=== PATIENT | female | born 1985 | race Caucasian/White ===

== ENCOUNTER → 2019-06-19 | Outpatient (REF) | payer OTHER | LOC: M SFHCLERA 11:06 | PROVIDERS: ATTEND Nurse Practitioner Family | DX: Z53.9 Procedure and treatment not carried out, unspecified reason (principal) ==

== ENCOUNTER 2019-09-20 11:22 | Inpatient (IN) | payer MEDICAID, OTHER ==
[~2019-09-20] VITALS: Ht 157.5 cm; Wt 90.7 kg
[2019-09-20] MEDS ORDERED: PHEN-239 PO (11:38)
[2019-09-20] MEDS ORDERED: SERT-141 PO (11:38)
[2019-09-20 12:03] LABS: HEMATOCRIT 41.3 % (36.0-47.0); HEMOGLOBIN 13.1 g/dl (12.0-15.5); MEAN CORPUSCULAR HEMOGLOBIN 26.3 pg (27.0-33.0); MEAN CORPUSCULAR HGB CONC 31.7 g/dl (32.0-36.5); MEAN CORPUSCULAR VOLUME 82.9 fl (80.0-96.0); PLATELET COUNT, AUTOMATED 414 10^3/uL (150-450); RED BLOOD COUNT 4.98 10^6/uL (4.00-5.40); WHITE BLOOD COUNT 12.6 10^3/uL (4.0-10.0)
[2019-09-20 12:11] LABS: HCG, SERUM QUALITATIVE NEGATIVE (NEGATIVE)
[2019-09-20 12:35] LABS: ACETAMINOPHEN LEVEL < 2.0 UG/ML (10.0-30.0); ALBUMIN 4.1 GM/DL (3.2-5.2); ALT/SGPT 56 U/L (12-78); BILIRUBIN,DIRECT 0.2 MG/DL (0.0-0.2); BILIRUBIN,TOTAL 0.5 MG/DL (0.2-1.0); BLOOD UREA NITROGEN 14 MG/DL (7-18); CARBON DIOXIDE LEVEL 22 MEQ/L (21-32); CHLORIDE LEVEL 108 MEQ/L (98-107); CREATININE FOR GFR 1.15 MG/DL (0.55-1.30); ETHYL ALCOHOL (ETHANOL) < 0.003 % (0.000-0.010); GLOMERULAR FILTRATION RATE 57.2 (>60); GLUCOSE, FASTING 83 MG/DL (70-100); POTASSIUM SERUM 3.6 MEQ/L (3.5-5.1); SALICYLATE LEVEL < 1.7 MG/DL (5.0-30.0); SODIUM LEVEL 140 MEQ/L (136-145); TOTAL PROTEIN 7.8 GM/DL (6.4-8.2)
[2019-09-20] MEDS ORDERED: lisinopriL 20 MG TAB PO ONE (13:15)
[2019-09-20] MEDS ORDERED: ALPRAZolam 0.5 MG TAB PO ONE (13:15)
[2019-09-20] MEDS ORDERED: LORazepam 2 MG/ML VIAL (J2060) IM ONE (13:30)
[2019-09-20] MEDS ORDERED: HALOPERIDOL 5 MG/ML VIAL (J1630) IM ONE (13:30)
[2019-09-20] MEDS ORDERED: diphenhydrAMINE INJ 50MG/ML VIAL (J1200) IM ONE (13:30)
[2019-09-20] MEDS ORDERED: LORazepam 2 MG/ML VIAL (J2060) As Ordered ONE (13:33)
--- NOTE | 2019-09-20 20:46 | ECGEPIP ---
[facility] - ED Test Date: 2019-09-20 Pat Name: JOAQUIN FONTANA Department: Room: - Gender: Female [employer]: : 1985 Requested By: CAROLANN MAYO Order Number: [id number] Reading MD: Grace Villatoro Measurements Intervals [place] Rate: 86 P: 34 SC: 106 QRS: 15 QRSD: 81 T: 3 QT: 372 QTc: 447 Interpretive Statements SINUS RHYTHM WITH SHORT SC INTERVAL MINIMAL VOLTAGE CRITERIA FOR LVH, CONSIDER NORMAL VARIANT NSTTW abnormalities NO PRIOR Electronically Signed on 09-20-2019 20:46:37 EST by Grace Villatoro
[2019-09-20 21:12] LABS: AMPHETAMINES LEVEL URINE NEGATIVE (NEGATIVE); BARBITURATES URINE NEGATIVE (NEGATIVE); BENZODIAZEPINES URINE POSITIVE (NEGATIVE); CANNABINOIDS URINE NEGATIVE (NEGATIVE); COCAINE METABOLITE URINE NEGATIVE (NEGATIVE); METHADONE URINE NEGATIVE (NEGATIVE); OPIATES URINE NEGATIVE (NEGATIVE); PHENCYCLIDINE URINE NEGATIVE (NEGATIVE)
[2019-09-21] MEDS ORDERED: ACETAMINOPHEN 325 MG/10.15 ML UDC PO ONE (04:15)
[2019-09-21] MEDS ORDERED: ACETAMINOPHEN TAB 650MG DOSE (2X325MG) PO ONE (04:30)
[2019-09-21] MEDS ORDERED: IBUP1TAB6 PO (05:50)
--- NOTE | 2019-09-21 07:40 | REP ---
CT BRAIN WITHOUT IV CONTRAST: CT brain was performed without IV contrast. Ventricles are normal in size and position with no midline shift or mass effect. Ash-white differentiation is well maintained. There is no acute intracranial hemorrhage, midline shift, or mass effect. No extra-axial fluid collection. Bone window examination is unremarkable. IMPRESSION: Negative noncontrast CT brain. Electronically Signed by Francsico Ash MD 09/21/2019 06:03 P
[2019-09-21] MEDS ORDERED: SERTRALINE HCL 50 MG TAB PO ONE (09:00)
[2019-09-21] MEDS ORDERED: SERTRALINE 100 MG TAB PO ONE (09:00)
[2019-09-21] MEDS ORDERED: NICOTINE 21MG/24HR 1 EA TRANSDERMAL TD PRN (13:15)
[2019-09-21] MEDS ORDERED: MOM 30ML SUSPENSION UDC PO PRN (13:15)
[2019-09-21] MEDS ORDERED: MAALOX 30 ML SUSP *UDC PO PRN (13:15)
--- NOTE | 2019-09-21 16:04 | HPEPDOC ---
General Date of Admission Sep 21, 2019 at 13:07 Date of Service: Sep 21, 2019 Chief Complaint The patient is a 33-year-old female admitted with a reason for visit of Psychotic Disorder. Source: Patient Exam Limitations: No limitations Associated Symptoms: Denies Symptoms History of Present Illness Pt is a 33 year old female admitted to the [facility] due to suicidal ideation. Pt reported she jumped out of the window of one of her parents' trailers last night; however she had no intention of harming herself. Instead, she had become overwhelmed with memories and associated feelings while she walked through the trailer. Pt denied any depression however she did report she has PTSD for which she takes Sertraline prescribed by her therapist. She also takes Phentermine for weight loss. Home Medications Scheduled Phentermine HCl (Phentermine HCl) 37.5 Mg Capsule, 37.5 MG PO DAILY, (Reported) Sertraline Hcl (Sertraline HCl) 50 Mg Tablet, 100 MG PO DAILY, (Reported) Scheduled PRN Ibuprofen (Ibuprofen) 600 Mg Tablet, 600 MG PO TID PRN for PAIN, (Reported) Allergies Coded Allergies: amoxicillin (Verified Allergy, Mild, rash, 09/20/19) Attending Note 33 yo W with a history of PTSD, member of the , who is admitted to the [facility] with concern for suicidality after she presented to the ED with a sprained L ankle after jumping out of a window, though she denies that the goal was self harm. Her labs were otherwise wnl and exam was grossly normal with mild ankle tenderness. Per medicine, she appears medically stable without acute medical concerns at this time and will continue tylenol and ibuprofen for pain. We will otherwise defer psychiatric evaluation and treatment to psychiatry. Will sign off at this time, please reconsult with any medical concerns. Thank you. Past Medical History Medical History unremarkable Surgical History Tympanostomy as a child Family History Significant Family History: Hypertension (MOther and father), Hyperlipidemia (Mother and father ) Social History * Smoker: former Smoker (smoked as a child) Alcohol: rarely Drugs: denies A-FIB/CHADSVASC A-FIB History Current/History of A-Fib/PAF?: No Current PO Anticoag Therapy: No Review of Systems Constitutional: Denies: Chills, Fever, Night Sweats Eyes: Denies: Pain, Vision change ENT: Denies: Head Aches, Ear Pain, Dysphagia Skin: Denies: Rash, Breakdown Pulmonary: Denies: Dyspnea, Cough Cardiovascular: Denies: Chest Pain, Palpitations, Lt Headedness Gastrointestinal: Denies: Nausea, Vomiting, Abdominal Pain, Diarrhea Genitourinary: Denies: Dysuria Hematologic: Denies: Bruising, Bleeding Excessively Musculoskeletal: Denies: Neck Pain, Back Pain, Joint Pain, Muscle Pain, Spasms Neurological: Denies: Weakness, Numbness Psych: Reports: Mood Normal; Denies: Depression, Thoughts of Self Harm, Thoughts of Harming Other Physical Examination General Exam: Positive: Alert, Cooperative, No Acute Distress Eye Exam: Positive: PERRLA, Conjunctiva & lids normal, EOMI; Negative: Sclera icteric ENT Exam: Positive: Atraumatic, Mucous membr. moist/pink, Pharynx Normal, Tongue Midline Neck Exam: Positive: Supple, thyromegaly Chest Exam: Positive: Clear to auscultation, Normal air movement Heart Exam: Positive: Rate Normal, Regular Rhythm, Normal S1, Normal S2; Negative: Gallops, Murmurs, Rubs Abdomen Exam: Positive: Normal bowel sounds, Soft; Negative: Tenderness Extremity Exam: Negative: Clubbing, Cyanosis, Edema Skin Exam: Positive: Nl turgor and temperature Neuro Exam: Positive: Normal Gait, Normal Speech, Strength at 5/5 X4 ext, Cranial Nerves 3-12 NL Psych Exam: Positive: Mood NL Vital Signs Vital Signs Date Time Temp Pulse Resp B/P (MAP) Pulse Ox O2 Delivery O2 Flow Rate FiO2 09/21/19 14:15 98.4 92 16 151/84 (106) 98 Room Air Laboratory Data Labs 24H Laboratory Tests 2 09/20/19 20:34: Urine Opiates Screen NEGATIVE, Urine Methadone Screen NEGATIVE, Urine Barbiturat es Screen NEGATIVE, Urine Phencyclidine Screen NEGATIVE, Urine Amphetamines Screen NEGATIVE, Urine Benzodiazepines Screen POSITIVEH, Urine Cocaine Metabolite Screen NEGATIVE, Urine Cannabinoids Screen NEGATIVE Assessment/Plan Pt is a 33 year old female admitted to the [facility] due to suicidal ideation. Pt reported she jumped out of the window of one of her parents' trailers last night; however she had no intention of harming herself. Instead, she had become overwhelmed with memories and associated feelings while she walked through the trailer. Pt denied any depression or depressive symptoms however she did report she has PTSD for which she takes Sertraline prescribed by her therapist. She also takes Phentermine for weight loss. Management per [facility]. Please re-consult as needed Plan / VTE VTE Prophylaxis Ordered?: No XAVIER THOMPSON PA-C Sep 21, 2019 16:04 JOSIAS PENNINGTON MD Sep 21, 2019 17:37
[2019-09-21] MEDS: IBUPROFEN 400 MG TAB PO PRN (21:29)
[2019-09-21] MEDS: traZODone 50 MG TAB PO PRN (22:31)
[2019-09-22 06:58] VITALS: BP 131/65
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
[2019-09-22] MEDS ORDERED: SERTRALINE 100 MG TAB PO ONE (10:30)
[2019-09-22] MEDS ORDERED: PILL CUTTER 1 EACH XX PRN (10:30)
[2019-09-22] MEDS: OLANZapine ORAL DISINTEGRATING TAB 5MG PO PRN (11:23)
[2019-09-22 15:44] VITALS: BP 118/56
[2019-09-23 06:37] VITALS: BP 144/89
[2019-09-23] MEDS: SERTRALINE 100 MG TAB PO SCH (08:18)
[2019-09-23] MEDS: IBUPROFEN 400 MG TAB PO PRN ×2 (08:21→22:00)
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
[2019-09-23] MEDS: OLANZapine ORAL DISINTEGRATING TAB 5MG PO PRN (14:13)
[2019-09-23 17:17] VITALS: BP 146/89
[2019-09-23] MEDS: LORazepam 1 MG TAB PO PRN (22:00)
[2019-09-24] MEDS: IBUPROFEN 400 MG TAB PO PRN ×2 (08:28→18:42)
[2019-09-24] MEDS: SERTRALINE 100 MG TAB PO SCH (08:28)
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
[2019-09-24 15:41] VITALS: BP 137/78
[2019-09-25] VITALS (8 sets, daily range): BP systolic 121–148; BP diastolic 56–82
[2019-09-25] MEDS: traZODone 50 MG TAB PO PRN (01:31)
[2019-09-25] MEDS ORDERED: LORazepam 2 MG/ML VIAL (J2060) IM STA (01:50)
[2019-09-25] MEDS ORDERED: HALOPERIDOL 5 MG/ML VIAL (J1630) IM STA (01:50)
[2019-09-25] MEDS ORDERED: diphenhydrAMINE INJ 50MG/ML VIAL (J1200) IM STA (01:50)
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
[2019-09-25] MEDS: SERTRALINE 100 MG TAB PO SCH (09:19)
[2019-09-25] MEDS: ARIPiprazole 10 MG TAB PO SCH (21:21)
[2019-09-26 06:00] VITALS: BP_SYST 121; BP_SYST 122; BP_DIAS 72; BP_DIAS 73
[2019-09-26] MEDS: SERTRALINE 100 MG TAB PO SCH (08:01)
[2019-09-26] MEDS: IBUPROFEN 400 MG TAB PO PRN ×2 (15:04→21:48)
[2019-09-26 16:37] VITALS: BP 124/80
[2019-09-26] MEDS: ARIPiprazole 10 MG TAB PO SCH (20:23)
[2019-09-26] MEDS: traZODone 50 MG TAB PO PRN (20:24)
[2019-09-27] MEDS: IBUPROFEN 400 MG TAB PO PRN ×3 (05:41→14:49)
[2019-09-27 06:16] VITALS: BP 143/75
[2019-09-27] MEDS: SERTRALINE 100 MG TAB PO SCH (08:44)
[2019-09-27] MEDS: LORazepam 1 MG TAB PO PRN (16:19)
[2019-09-27 19:00] VITALS: BP 139/85
[2019-09-27] MEDS: traZODone 50 MG TAB PO PRN (21:27)
[2019-09-27] MEDS: ARIPiprazole 10 MG TAB PO SCH (21:27)
[2019-09-27] MEDS: OLANZapine ORAL DISINTEGRATING TAB 5MG PO PRN (21:27)
[2019-09-28 06:23] VITALS: BP 145/88
[2019-09-28] MEDS: SERTRALINE 100 MG TAB PO SCH (08:41)
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
[2019-09-28] MEDS: IBUPROFEN 400 MG TAB PO PRN (15:42)
[2019-09-28 16:56] VITALS: BP 128/82
[2019-09-28] MEDS: LORazepam 1 MG TAB PO PRN (18:25)
[2019-09-28] MEDS: traZODone 50 MG TAB PO PRN (21:12)
[2019-09-28] MEDS: ARIPiprazole 10 MG TAB PO SCH (21:14)
[2019-09-29 06:25] VITALS: BP 120/62
[2019-09-29] MEDS: SERTRALINE 100 MG TAB PO SCH (08:33)
[2019-09-29] MEDS: ARIPiprazole 10 MG TAB PO SCH ×2 (08:33→20:15)
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
[2019-09-29] MEDS ORDERED: ARIPiprazole MONOHYDRATE 400 MG INJ (ABILIFY)(J0401) IM ONE (10:00)
--- NOTE | 2019-09-29 10:02 | REP ---
Left ankle: Four views. History: Continued pain. Pain after a fall. Findings: Four views of the left ankle demonstrate plantar calcaneal spurring. On one of the views, there is a radiolucency through the distal tibial metaphysis which could be an incomplete fracture. It is not visible on any other view. There is some anterior soft tissue swelling. Ankle mortise is intact. No other evidence of fracture. Impression: Possible incomplete fracture distal tibial metaphysis, radiolucency seen on only one view. Recommend CT scanning of the left ankle. Heel spurring. Otherwise negative. Electronically Signed by Jaime Ennis MD 09/29/2019 11:42 A
[2019-09-29] MEDS ORDERED: HYDROCORTISONE 1% CREAM 30 GM TOP PRN (10:15)
[2019-09-29] MEDS: IBUPROFEN 400 MG TAB PO PRN (11:53)
--- NOTE | 2019-09-29 13:22 | REP ---
CT left ankle without contrast: History: Rule out incomplete fracture left distal tibia. Pain after a fall. Comparison is made with today's ankle radiographs. CT findings: There is a coronal plane nondisplaced fracture through the posterior tibial "malleolus". Fracture is interarticular. There is no visible articular margin step-off. The triangular distal tibial fracture fragment is nondisplaced. The medial and lateral malleoli are intact. No talar fracture is seen. No visible fibular fracture. Calcaneus and other visualized tarsal bones are intact. There is evidence of ankle joint effusion. Impression: Nondisplaced intra-articular fracture of the distal tibia at the level of the posterior "malleolus". Electronically Signed by Jaime Ennis MD 09/29/2019 02:39 P
[2019-09-29 16:30] VITALS: BP 132/72
--- NOTE | 2019-09-29 18:36 | CR ---
DATE OF CONSULTATION: 09/29/2019 REASON FOR CONSULTATION: Left ankle pain. HISTORY OF PRESENT ILLNESS: Dolly was admitted to the behavioral health unit here at [facility] about a week ago. She was complaining of some ankle pain on the left, continued to persist, and they did do an x-ray and saw a nondisplaced posterior malleolus fracture. CT confirmed that. I reviewed both those imaging studies and concur with the radiologist. Otherwise, she is denying any issues other than her behavioral health issues. She has been walking on this the whole time since the injury. PHYSICAL EXAMINATION: Reveals a well-developed, well-nourished, in no acute distress, alert female. She is alert and oriented times three. Normocephalic, atraumatic. Inspection of the ankle reveals medial malleolus tenderness to palpation and percussion as well as to the posterior aspect of the ankle, mild tenderness laterally over the lateral malleolus, mild edema through the ankle. Calf is soft and nontender. There are no palpable cords. The patient shows decreased range of motion due to stiffness. The foot is neurovascularly intact. IMAGING STUDIES: As above. IMPRESSION: Nondisplaced posterior malleolus fracture of the left ankle. PLAN: The plan will be for an L U splint. That was applied and held in place with an RICARDO wrap. The patient is going to get a cashew upon discharge due to the inclement weather this time of year. She is going to be partial weightbearing with her crutches. She also needs a consult with physical therapy for crutch training. For further details, please see the medical record.
[2019-09-29] MEDS: traZODone 50 MG TAB PO PRN (20:15)
[2019-09-30] MEDS: OLANZapine ORAL DISINTEGRATING TAB 5MG PO PRN (00:01)
[2019-09-30 06:04] VITALS: BP 134/75
[2019-09-30] MEDS ORDERED: TRAZ-252 PO (08:52)
[2019-09-30] MEDS ORDERED: SERT-141 PO (08:52)
[2019-09-30] MEDS ORDERED: ABIL1INJ2 IM (08:52)
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
[2019-09-30] MEDS: SERTRALINE 100 MG TAB PO SCH (09:21)
[2019-09-30] MEDS: ARIPiprazole 10 MG TAB PO SCH (09:21)
[2019-09-30] MEDS: IBUPROFEN 400 MG TAB PO PRN ×2 (11:39→12:12)
== END 2019-09-30 12:05 | disposition home or self-care (01) | DRG 776 ==
LOC: M ED 11:22 → M ED INP 09-21 13:07 → M PSY 09-21 14:35
PROVIDERS: ADMIT Psychiatry & Neurology Psychiatry; ATTEND Psychiatry & Neurology Psychiatry
DX: F19.94 Other psychoactive substance use, unspecified with psychoactive substance-induced mood disorder (principal); F43.10 Post-traumatic stress disorder, unspecified; F30.2 Manic episode, severe with psychotic symptoms; R45.851 Suicidal ideations; Z88.0 Allergy status to penicillin; Z87.891 Personal history of nicotine dependence; S82.52XA Displaced fracture of medial malleolus of left tibia, initial encounter for closed fracture; W18.30XA Fall on same level, unspecified, initial encounter; Y92.9 Unspecified place or not applicable